=== PATIENT | male | born 1990 | race African-American/Black ===

== ENCOUNTER → 2017-08-07 | Outpatient (CLI) | payer OTHER ==
[~2017-08-07] MED LIST: CONRAY-43 43% 50ML VIAL (Q9960) As Ordered ONE; PROHANCE 279.3MG/ML 5ML VIAL (A9576) As Ordered ONE
--- NOTE | 2017-08-07 10:33 | REP ---
LEFT SHOULDER ARTHROGRAM: The procedure was performed by CATINA Helton, under the direct supervision of Dr. Cross. The procedure along with its risks, benefits and complications were discussed with the patient prior to the examination. Informed consent was obtained both verbally and written. The patient was identified in the radiography suite and placed in supine position. The left humeral head was localized using fluoroscopic guidance. The skin was marked, prepped and draped in the usual sterile fashion. A procedural time out was performed to ensure that the correct patient, site and procedure were being performed. Local infiltrative anesthesia was achieved using 1% lidocaine. Using fluoroscopic guidance, a 22-gauge spinal needle was inserted and advanced to the humeral head. 0.5 mL of Conray 60 was injected to verify placement. 11 mL of a solution containing 19 mL of sterile saline and 0.15 mL of ProHance were injected into the joint space. The needle was then removed. The patient tolerated the procedure well and had no immediate complications. Fluoroscopy time of 17 seconds were utilized for this procedure. Reviewed by CATINA Browning 08/07/2017 11:38 AEdited and Signed by Jignesh Cross MD 08/07/2017 03:48 P
--- NOTE | 2017-08-07 14:47 | REP ---
MR ARTHROGRAM LEFT SHOULDER: TECHNIQUE: Axial T2 fat sat, coronal oblique T1, T2 fat sat, post arthrogram axial T1 fat sat, proton density, coronal oblique T1 fat sat, T2 sat, sagittal oblique T2 fat sat, ABER T1 fat sat. The supraspinatus tendon demonstrates mild diffuse increased signal on T2-weighted images compatible with mild to moderate tendinosis-tendinitis. No focal rotator cuff tendon tear is seen. Acromioclavicular joint is well aligned and essentially unremarkable. Acromion is type 2. Biceps tendon is within the bicipital groove. There is no Hill-Sachs deformity. Deltoid muscle demonstrates no abnormal signal. Biceps tendon inserts on the superior labrum, but the underlying superior labrum is diffusely torn consistent with a SLAP tear. The labral tear extends throughout the posterior labrum and also into the superior aspect of the anterior labrum. There is no bone bruise or occult fracture. There is a small joint effusion. IMPRESSION: Mild to moderate supraspinatus tendinopathy/tendinosis. No discrete rotator cuff tear. There is a diffuse SLAP tear which extends throughout the posterior labrum as well. The labral tear also extends into the superior aspect of the anterior labrum. Signed by Rui Rivera MD 08/07/2017 04:13 P
== END ==
LOC: M RADPRO 08:10
PROVIDERS: ATTEND Physical Therapist
DX: M75.80 Other shoulder lesions, unspecified shoulder (principal); S43.432A Superior glenoid labrum lesion of left shoulder, initial encounter; M25.512 Pain in left shoulder; X58.XXXA Exposure to other specified factors, initial encounter; Y92.89 Other specified places as the place of occurrence of the external cause; Y93.89 Activity, other specified; Y99.8 Other external cause status
CPT/HCPCS: 23350; 73223; 77002; A9576; Q9960

== ENCOUNTER → 2018-01-25 | Outpatient (REF) | payer OTHER ==
[2018-01-25 22:14] LABS: CHLAMYDIA DNA AMPLIFICATION NEGATIVE (NEGATIVE); GC DNA AMPLIFICATION NEGATIVE (NEGATIVE)
== END ==
LOC: M SFHCLERA 18:32
DX: R30.0 Dysuria (principal)
CPT/HCPCS: 87086

== ENCOUNTER → 2018-03-10 | Outpatient (CLI) | payer OTHER ==
[~2018-03-10] MED LIST changes: +CONRAY-43 43% 50ML VIAL (Q9960) As Ordered; -CONRAY-43 43% 50ML VIAL (Q9960) As Ordered ONE; +PROHANCE 279.3MG/ML 5ML VIAL (A9576) As Ordered; -PROHANCE 279.3MG/ML 5ML VIAL (A9576) As Ordered ONE
== END ==
LOC: M RADPRO 06:36
DX: S73.192A Other sprain of left hip, initial encounter (principal); Y92.89 Other specified places as the place of occurrence of the external cause; Y93.89 Activity, other specified; X58.XXXA Exposure to other specified factors, initial encounter; Y99.8 Other external cause status
CPT/HCPCS: 27093

== ENCOUNTER → 2018-04-22 | Outpatient (CLI) | payer OTHER ==
[~2018-04-22] MED LIST changes: +LIDOCAINE 1% MDV 20ML VIAL As Ordered; -PROHANCE 279.3MG/ML 5ML VIAL (A9576) As Ordered; +TRIAMCINOLONE ACETONIDE SUSP 40 MG/ML VIAL (J3301) As Ordered
== END ==
LOC: M RADPRO 09:27
DX: M25.552 Pain in left hip (principal)
CPT/HCPCS: 20610